=== PATIENT | male | born 1985 | race Caucasian/White ===

== ENCOUNTER 2022-12-31 18:10 | Inpatient (IN) | payer SELFPAY ==
[2022-12-31] MEDS ORDERED: Acetaminophen 325 MG TAB PO PRN (18:44)
[2022-12-31] MEDS ORDERED: Senokot S 8.6-50 MG TAB PO PRN (18:44)
[2022-12-31] MEDS ORDERED: Bisacodyl 5 MG TAB PO PRN (18:44)
[2022-12-31 19:53] VITALS: BMI 15.1
[2022-12-31] MEDS: Atorvastatin Calcium 40 MG TAB PO SCH (20:45)
[2022-12-31 23:34] LABS: Troponin I Less than 0.010 ng/mL (< 0.028)
[2023-01-01 05:07] LABS: #Basophils 0.1 thou/uL (0.0-0.2); #Eosinphils 0.5 thou/uL (0.0-0.7); #Monocytes 0.6 thou/uL (0.11-0.59); #Neutrophils 2.2 thou/uL (1.40-6.50); %Basophils 1.6 % (0.0-1.0); %Eosinophils 11.8 % (0.0-10.0); %Lymphocytes 20.9 % (21.0-51.0); %Monocytes 13.5 % (0.0-10.0); %Neutrophils 51.5 % (42.0-75.0); Hematocrit 45.9 % (42.0-52.0); Hemoglobin 15.9 g/dL (14.0-18.0); Mean Corpuscular HGB CONC 34.6 g/dL (32.0-36.0); Mean Corpuscular Hemoglobin 33.2 pg (27.0-31.0); Mean Corpuscular Volume 95.8 fl (78.0-98.0); Mean Platelet Volume 8.9 fL (7.4-10.4); Platelet Count 167 10x3/uL (130-400); RBC Distribution Width 12.1 % (11.5-14.5); Red Blood Cell (RBC) Count 4.79 mill/uL (4.70-6.10); White Blood Cell (WBC) Count 4.3 10x3/uL (4.8-10.8)
[2023-01-01 05:18] LABS: Hemoglobin A1c 4.6 % (4.0-6.0)
[2023-01-01 05:48] LABS: Anion Gap 17 mmol/L (10-20); BUN (Urea Nitrogen) 5 mg/dL (8.9-20.6); Calc. Creatinine Clearance 101 mL/min (70-130); Calcium 9.7 mg/dL (7.8-10.44); Carbon Dioxide 25 mmol/L (22-29); Cardiac Risk 1.5 (Less than 4.5); Chloride 99 mmol/L (98-107); Cholesterol 184 mg/dl (< 200 Desired); Estimated GFR 123; Glucose 91 mg/dL (70-105); HDL Cholesterol 119 mg/dL (>60 Neg Risk); LDL Cholesterol, Calculated 56 mg/dL; Potassium 3.9 mmol/L (3.5-5.1); Sodium 137 mmol/L (136-145); Triglycerides 46 mg/dL (Less than 150)
[2023-01-01] MEDS: Aspirin 81 mg Enteric Coated Tablet PO SCH (08:48)
[2023-01-01] MEDS: Atorvastatin Calcium 40 MG TAB PO SCH (19:53)
[2023-01-02 05:27] LABS: #Basophils 0.1 thou/uL (0.0-0.2); #Eosinphils 0.5 thou/uL (0.0-0.7); #Monocytes 0.8 thou/uL (0.11-0.59); #Neutrophils 2.1 thou/uL (1.40-6.50); %Eosinophils 10.5 % (0.0-10.0); %Lymphocytes 24.3 % (21.0-51.0); %Monocytes 16.4 % (0.0-10.0); %Neutrophils 46.6 % (42.0-75.0); Hematocrit 45.2 % (42.0-52.0); Hemoglobin 15.5 g/dL (14.0-18.0); Mean Corpuscular HGB CONC 34.3 g/dL (32.0-36.0); Mean Corpuscular Hemoglobin 33.3 pg (27.0-31.0); Mean Platelet Volume 9.4 fL (7.4-10.4); Platelet Count 167 10x3/uL (130-400); RBC Distribution Width 12.2 % (11.5-14.5); Red Blood Cell (RBC) Count 4.66 mill/uL (4.70-6.10); White Blood Cell (WBC) Count 4.6 10x3/uL (4.8-10.8)
[2023-01-02 06:05] LABS: Anion Gap 14 mmol/L (10-20); BUN (Urea Nitrogen) 7 mg/dL (8.9-20.6); Calc. Creatinine Clearance 107 mL/min (70-130); Calcium 9.5 mg/dL (7.8-10.44); Carbon Dioxide 26 mmol/L (22-29); Chloride 98 mmol/L (98-107); Estimated GFR 125; Glucose 94 mg/dL (70-105); Potassium 3.4 mmol/L (3.5-5.1); Sodium 135 mmol/L (136-145)
[2023-01-02] MEDS: Aspirin 81 mg Enteric Coated Tablet PO SCH (08:46)
[2023-01-02 12:20] VITALS: TEMP 98.4
[2023-01-02 13:06] VITALS: BP 144/91
== END 2023-01-02 13:55 | disposition home or self-care (01) | DRG 69 ==
LOC: INTOOBSV 18:10 → 2SW 18:10 → OBSVTOIN 01-01 17:08
PROVIDERS: ADMIT Internal Medicine; ATTEND Family Medicine
DX: G45.9 Transient cerebral ischemic attack, unspecified (principal); G81.94 Hemiplegia, unspecified affecting left nondominant side; K21.9 Gastro-esophageal reflux disease without esophagitis; Z98.890 Other specified postprocedural states; Z91.013 Allergy to seafood
CPT/HCPCS: 36415; 70551; 80048; 80061; 83036; 84443; 85025; 93005; 93010; 93306; 93880; J1650